=== PATIENT | male | born 1950 | race Caucasian/White ===

== ENCOUNTER 2023-06-16 10:01 | Outpatient (AMB) | payer MEDICARE, SELFPAY ==
[2023-06-16 10:19] VITALS: BP 138/58; PULSE 55; O2SAT 100; BMI 23.5
--- NOTE | 2023-06-16 10:19 | HO.NEPHOV_ITS ---
HPI HPI Comments History of Present Illness Details I had the privilege of seeing Isac in consultation for labile hypertension. He is known to have blood pressure for quite a while and has been on medications but the dose as well as a number of medication had been steadily increasing. He was started on 12.5 mg chlorthalidone recently and his valsartan was increased to 320 mg as well. He has history of bilateral carotid disease and had undergone left carotid endarterectomy early this year. He denies coronary artery disease, congestive heart failure, CVA, peripheral arterial disease. He has not very strict with low-sodium diet. He has been fairly activ e. He denies any chest pain, shortness of breath, paroxysmal nocturnal dyspnea, orthopnea, pedal edema, hematuria, nephrolithiasis, bone or back pain. He does not take excessive nonsteroidal anti-inflammatories. He denies any orthostatic symptoms. He feels well but is concerned about the number of medications he has been taking to keep his blood pressure down. His has accompanied him dur ing this office visit. [facility] Medical History (Updated 06/16/23 @ 10:26 by Leo Chong MD) Hyperlipidemia Hyperkalemia Erectile dysfunction Constipation Carotid artery disease Bilateral carotid bruits Essential (primary) hypertension Aortic heart murmur Surgical History (Updated 06/16/23 @ 10:16 by Rocio Jim MA) H/O colonoscopy History of left-sided carotid endarterectomy Family History (Updated 06/16/23 @ 10:18 by Rocio Jim MA) Father Cardiovascular disease Diabetes mellitus Hypertension Social History (Updated 06/16/23 @ 10:22 by Rocio Jim MA) Alcohol intake: current Patient Tobacco Use Status: Never used Tobacco Vital Signs 06/16/23 10:19 Height 5 ft 10 in Weight 163 lb 8 oz BMI 23.5 BP 138/58 L Blood Pressure Location Lt brachial Position Sitting Pulse 55 Pulse Source Pulse Oximeter Pulse Oximetry (%) 100 Oxygen Delivery Method Room Air Physical Exam Vital Signs: Last Vital Signs Pulse 55 06/16/23 10:19 BP 138/58 L 06/16/23 10:19 Pulse Ox 100 06/16/23 10:19 Oxygen Delivery Method Room Air 06/16/23 10:19 BMI result Body Mass Index 23.5 Const General: comfortable and no acute distress Orientation/consciousness: patient oriented x3 HEENT Head: Yes normocephalic Mouth: Normal oral and palatal mucosa present Eyes EOM: EOMs intact bilaterally Neck Other: Left CEA scar present; right carotid bruit present Neck: Yes supple Resp Auscultation: clear to auscultation bilaterally Cardio Jugular venous distension: no JVD Rate: regular rate GI Palpation (GI): Soft to palpation Auscultation: normal bowel sounds General: Yes no CVA tenderness Back/Spine/Pelvis Back: no CVA tenderness Skin General skin exam: no rashes or lesions noted Neuro General: patient oriented x3 and moves all extremities Extrem General: Yes no pedal edema Assessment & Plan Assessment & Plan (1) Essential (primary) hypertension: Code(s): I10 - Essential (primary) hypertension Plan: Vernon has longstanding hypertension. He is on multiple antihypertensive medications. Has no history of hypokalemia but rather had high normal serum potassium. His valsartan dosage has been increased to 320 mg daily which I asked him to continue. I increased his chlorthalidone to 25 mg in the morning. I ordered Doppler of his renal arteries. He most likely has renovascular disease. He has no history of congestive heart failure or coronary artery disease. He is on statins. He should be on a low-sodium diet. I will do a 24 hour blood pressure monitor on him if his blood pressure control remains labile. I will continue to adjust his medications based on evolving data. I answered all his and his 's questions. Follow-up appointment given. Orders: Orders Creatinine Today I10 - Essential (primary) hypertension Blood Urea Nitrogen Today I10 - Essential (primary) hypertension US renal doppler Today I10 - Essential (primary) hypertension Electrolytes Today I10 - Essential (primary) hypertension US renal BI Today I10 - Essential (primary) hypertension Medications: New chlorthalidone 25 mg PO QAM 90 days 90 tabs 3RF Coding Level of Care Code New Pt Level 4 (77931) Diagnoses Essential (primary) hypertension I10 Results Reviewed Nephrology Results: No Data to Display
== END 2023-06-16 11:06 | disposition home or self-care (01) ==
PROVIDERS: PCP Family Medicine; Referring Provider Family Medicine; Visit Provider Internal Medicine Nephrology
DX: I10 Essential (primary) hypertension (principal)
CPT/HCPCS: 99204

== ENCOUNTER → 2023-06-16 10:01 | Outpatient (BNVA) | payer MEDICARE, SELFPAY | PROVIDERS: PCP Family Medicine; Referring Provider Family Medicine; Visit Provider Internal Medicine Nephrology | DX: I10 Essential (primary) hypertension (principal) | CPT/HCPCS: 99202 ==

== ENCOUNTER 2023-07-14 10:28 | Outpatient (AMB) | payer MEDICARE, SELFPAY ==
--- NOTE | 2023-07-14 10:52 | HO.NEPHOV_ITS ---
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 He is known to have blood pressure for quite a while and has been on medications but the dose as well as a number of medication had been steadily increasing. He was started on 12.5 mg chlorthalidone recently and his valsartan was increased to 320 mg as well. He has history of bilateral carotid disease and had undergone left carotid endarterectomy early this year. He denies coronary artery disease, congestive heart failure, CVA, peripheral arterial disease. He has not very strict with low-sodium diet. He has been fairly active. He denies any chest pain, shortness of breath, paroxysmal nocturnal dyspnea, orthopnea, pedal edema, hematuria, nephrolithiasis, bone or back pain. He does not take excessive nonsteroidal anti-inflammatories. He denies any orthostatic symptoms. He feels well but is concerned about the number of medications he has been taking to keep his blood pressure down. 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 His has accompanied him during this office visit. [facility] Medical History (Updated 06/16/23 @ 10:26 by Leo Chong MD) Hyperlipidemia Hyperkalemia Erectile dysfunction Constipation Carotid artery disease Bilateral carotid bruits Essential (primary) hypertension Aortic heart murmur Surgical History H/O colonoscopy History of left-sided carotid endarterectomy Family History Father Cardiovascular disease Diabetes mellitus Hypertension Social History Alcohol intake: current Patient Tobacco Use Status: Never used Tobacco Physical Exam Vital Signs: Last Vital Signs Pulse 57 07/14/23 10:53 BP 128/60 07/14/23 10:53 Pulse Ox 99 07/14/23 10:53 Oxygen Delivery Method Room Air 07/14/23 10:53 BMI result Body Mass Index 23.8 Const General: comfortable and no acute distress Orientation/consciousness: patient oriented x3 HEENT Head: Yes normocephalic Mouth: Normal oral and palatal mucosa present Eyes EOM: EOMs intact bilaterally Neck Neck: Yes supple Resp Auscultation: clear to auscultation bilaterally Cardio Jugular venous distension: no JVD Rate: regular rate GI Palpation (GI): Soft to palpation Auscultation: normal bowel sounds General: Yes no CVA tenderness Back/Spine/Pelvis Back: no CVA tenderness Skin General skin exam: no rashes or lesions noted Neuro General: patient oriented x3 and moves all extremities Extrem General: Yes no pedal edema Results Reviewed Nephrology Results: No Data to Display Assessment & Plan Assessment & Plan (1) Essential (primary) hypertension: Code(s): I10 - Essential (primary) hypertension Category: Medical Plan Vernon has longstanding hypertension. He is on multiple antihypertensive medications. Has no history of hypokalemia but rather had high normal serum potassium. His blood pressure is currently at goal on current medications. I ordered Doppler of his renal arteries. He most likely has renovascular disease. He has no history of congestive heart failure or coronary artery disease. He is on statins. He should be on a low-sodium diet. I will do a 24 hour blood pressure monitor on him if his blood pressure control remains labile. I will continue to adjust his medications based on evolving data. I answered all his and his 's questions. Follow-up appointment given. Orders: Orders Creatinine Today I10 - Essential (primary) hypertension Blood Urea Nitrogen Today I10 - Essential (primary) hypertension Protein Creatinine Ratio, Ur Today I10 - Essential (primary) hypertension Electrolytes Today I10 - Essential (primary) hypertension Coding Level of Care Code Est Pt Level 4 (18072) Diagnoses Essential (primary) hypertension I10
[2023-07-14 10:53] VITALS: BP 128/60; PULSE 57; O2SAT 99; BMI 23.8
== END 2023-07-14 11:32 | disposition home or self-care (01) ==
PROVIDERS: PCP Family Medicine; Visit Provider Internal Medicine Nephrology
DX: I10 Essential (primary) hypertension (principal)
CPT/HCPCS: 99214

== ENCOUNTER → 2023-07-14 10:28 | Outpatient (BNVA) | payer MEDICARE, SELFPAY | PROVIDERS: PCP Family Medicine; Visit Provider Internal Medicine Nephrology | DX: I10 Essential (primary) hypertension (principal); Z79.899 Other long term (current) drug therapy | CPT/HCPCS: 99212 ==

== ENCOUNTER 2023-07-17 08:11 | Outpatient (REF) | payer MEDICARE, SELFPAY ==
--- NOTE | ~2023-07-17 | US_ITS ---
EXAMINATION: ULTRASOUND RENAL WITH DOPPLER CLINICAL INFORMATION: Essential primary hypertension COMPARISON: None. TECHNIQUE: Real-time grayscale, color Doppler, and duplex Doppler evaluation of the kidneys and renal vasculature was performed. FINDINGS: RENAL MEASUREMENTS: Right: 10.4 x 6.2 x 5.7 cm (Sag x AP x TV) Left: 10.3 x 6.7 x 4.9 cm (Sag x AP x TV) The renal parenchyma appears normal. No hydronephrosis or nephrolithiasis. DOPPLER INTERROGATION: Aorta: 108 cm/sec Right Main Renal Artery: Proximal: 205 cm/sec Mid: 123 cm/sec Distal: 213 cm/sec Left Main Renal Artery: Proximal: 153 cm/sec Mid: 99 cm/sec Distal: 96 cm/sec Renal-Aortic Ratio (RAR): Right: Cannot be accurately calculated due to elevated aortic velocity. Left: Cannot be accurately calculated due to elevated aortic velocity. SEGMENTAL RESISTIVE INDICES: Right: 0.79-0.82 Left: 0.79-0.81 US/US renal doppler IMPRESSION: -No focally elevated velocity within either main renal artery to suggest hemodynamically significant stenosis. -Segmental resistive indices are at the upper limits of normal within both kidneys.
--- NOTE | ~2023-07-17 | US_ITS ---
EXAMINATION: ULTRASOUND RENAL WITH DOPPLER CLINICAL INFORMATION: Essential primary hypertension COMPARISON: None. TECHNIQUE: Real-time grayscale, color Doppler, and duplex Doppler evaluation of the kidneys and renal vasculature was performed. FINDINGS: RENAL MEASUREMENTS: Right: 10.4 x 6.2 x 5.7 cm (Sag x AP x TV) Left: 10.3 x 6.7 x 4.9 cm (Sag x AP x TV) The renal parenchyma appears normal. No hydronephrosis or nephrolithiasis. DOPPLER INTERROGATION: Aorta: 108 cm/sec Right Main Renal Artery: Proximal: 205 cm/sec Mid: 123 cm/sec Distal: 213 cm/sec Left Main Renal Artery: Proximal: 153 cm/sec Mid: 99 cm/sec Distal: 96 cm/sec Renal-Aortic Ratio (RAR): Right: Cannot be accurately calculated due to elevated aortic velocity. Left: Cannot be accurately calculated due to elevated aortic velocity. SEGMENTAL RESISTIVE INDICES: Right: 0.79-0.82 Left: 0.79-0.81 US/US renal BI IMPRESSION: -No focally elevated velocity within either main renal artery to suggest hemodynamically significant stenosis. -Segmental resistive indices are at the upper limits of normal within both kidneys.
== END 2023-07-17 08:12 | disposition home or self-care (01) ==
LOC: HO.US 08:11
PROVIDERS: PCP Family Medicine; Visit Provider Internal Medicine Nephrology
DX: I10 Essential (primary) hypertension (principal)
CPT/HCPCS: 76775; 93975

== ENCOUNTER 2024-01-10 10:43 | Outpatient (AMB) | payer MEDICARE, SELFPAY ==
--- NOTE | 2024-01-10 10:47 | HO.NEPHOV ---
Vital Signs 01/10/24 10:50 Height 5 ft 10 in Weight 167 lb 6 oz BMI 24.0 BP 124/50 L Blood Pressure Location Rt brachial Position Sitting Intake Visit Reasons: Hypertension/ 6 MO FU- [facility] Physician Intensivist Required: No Accompanied by: Spouse Allergies Penicillins Allergy (Verified 01/10/24 10:48) Unknown HPI Comments Details: Isac was seen in follow up for hypertension. He has history of bilateral carotid disease and had undergone left carotid endarterectomy . He denies coronary artery disease, congestive heart failure, CVA, peripheral arterial disease. He has not very strict with low-sodium diet. He has been fairly active. He denies any chest pain, shortness of breath, paroxysmal nocturnal dyspnea, orthopnea, pedal edema, hematuria, nephrolithiasis, bone or back pain. He does not take excessive nonsteroidal anti-inflammatories. 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 His has accompanied him during this office visit. [facility] Medical History (Updated 06/16/23 @ 10:26 by Leo Chong MD) Hyperlipidemia Hyperkalemia Erectile dysfunction Constipation Carotid artery disease Bilateral carotid bruits Essential (primary) hypertension Aortic heart murmur Surgical History H/O colonoscopy History of left-sided carotid endarterectomy Family History Father Cardiovascular disease Diabetes mellitus Hypertension Social History Alcohol intake: current Patient Tobacco Use Status: Never used Tobacco Review of Systems Const All systems reviewed & are unremarkable except as noted in HPI and below Physical Exam Vital Signs: Last Vital Signs BP 124/50 L 01/10/24 10:50 BMI result Body Mass Index 24.0 Const General: comfortable and no acute distress Orientation/consciousness: patient oriented x3 HEENT Head: Yes normocephalic Mouth: Normal oral and palatal mucosa present Eyes EOM: EOMs intact bilaterally Neck Neck: Yes supple Resp Auscultation: clear to auscultation bilaterally Cardio Jugular venous distension: no JVD Rate: regular rate GI Palpation (GI): Soft to palpation Auscultation: normal bowel sounds General: Yes no CVA tenderness Back/Spine/Pelvis Back: no CVA tenderness Skin General skin exam: no rashes or lesions noted Neuro General: patient oriented x3 and moves all extremities Extrem General: Yes no pedal edema Results Reviewed Nephrology Results: Renal US 07/17/23 Assessment & Plan Assessment & Plan (1) Essential (primary) hypertension: Code(s): I10 - Essential (primary) hypertension Category: Medical Plan Vernon has longstanding hypertension. He is on multiple antihypertensive medications. His blood pressure is currently at goal on current medications. He most likely has renovascular disease. He has no history of congestive heart failure or coronary artery disease. He is on statins. He should be on a low-sodium diet. He recently had hyperkalemia which has been treated. Repeat K was ok. I answered all his and his 's questions. Follow-up appointment given Orders: Orders Creatinine 3 Months I10 - Essential (primary) hypertension Blood Urea Nitrogen 3 Months I10 - Essential (primary) hypertension Electrolytes 3 Months I10 - Essential (primary) hypertension Coding Level of Care Code Est Pt Level 4 (38542) Diagnoses Essential (primary) hypertension I10
[2024-01-10 10:50] VITALS: BP 124/50; BMI 24.0
== END 2024-01-10 11:18 | disposition home or self-care (01) ==
LOC: HO.HKA 10:44
PROVIDERS: PCP Family Medicine; Visit Provider Internal Medicine Nephrology
DX: I10 Essential (primary) hypertension (principal)
CPT/HCPCS: 99214

== ENCOUNTER → 2024-01-10 10:43 | Outpatient (BNVA) | payer MEDICARE, SELFPAY | PROVIDERS: PCP Family Medicine; Visit Provider Internal Medicine Nephrology | DX: I10 Essential (primary) hypertension (principal) | CPT/HCPCS: 99212 ==

== ENCOUNTER 2024-08-21 15:05 | Outpatient (AMB) | payer MEDICARE, SELFPAY ==
--- NOTE | 2024-08-21 15:50 | HO.NEPHOV ---
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 He has history of bilateral carotid disease and had undergone left carotid endarterectomy . He denies coronary artery disease, congestive heart failure, CVA, peripheral arterial disease. He has not very strict with low-sodium diet. He has been fairly active. He denies any chest pain, shortness of breath, paroxysmal nocturnal dyspnea, orthopnea, pedal edema, hematuria, nephrolithiasis, bone or back pain. He does not take excessive nonsteroidal anti-inflammatories. He denies any orthostatic symptoms. [facility] Medical History (Updated 06/16/23 @ 10:26 by Leo Chong MD) Hyperlipidemia Hyperkalemia Erectile dysfunction Constipation Carotid artery disease Bilateral carotid bruits Essential (primary) hypertension Aortic heart murmur Surgical History (Updated 08/21/24 @ 15:56 by Rocio Jim MA) History of right-sided carotid endarterectomy H/O colonoscopy History of left-sided carotid endarterectomy Family History Father Cardiovascular disease Diabetes mellitus Hypertension Social History Alcohol intake: current Patient Tobacco Use Status: Never used Tobacco Review of Systems Const All systems reviewed & are unremarkable except as noted in HPI and below Physical Exam Vital Signs: Last Vital Signs Pulse 57 08/21/24 15:54 BP 152/70 H 08/21/24 15:54 Pulse Ox 99 08/21/24 15:54 Oxygen Delivery Method Room Air 08/21/24 15:54 BMI result Body Mass Index 24.0 Const General: comfortable and no acute distress Orientation/consciousness: patient oriented x3 HEENT Head: Yes normocephalic Mouth: Normal oral and palatal mucosa present Eyes EOM: EOMs intact bilaterally Neck Neck: Yes supple Resp Auscultation: clear to auscultation bilaterally Cardio Jugular venous distension: no JVD Rate: regular rate GI Palpation (GI): Soft to palpation Auscultation: normal bowel sounds General: Yes no CVA tenderness Back/Spine/Pelvis Back: no CVA tenderness Skin General skin exam: no rashes or lesions noted Neuro General: patient oriented x3 and moves all extremities Extrem General: Yes no pedal edema Results Reviewed Nephrology Results: Renal US 07/17/23 Assessment & Plan Assessment & Plan (1) Essential (primary) hypertension: Code(s): I10 - Essential (primary) hypertension Category: Medical Plan Vernon has longstanding hypertension. He is on multiple antihypertensive medications. His blood pressure is currently at goal on current medications. He most likely has renovascular disease. He has no history of congestive heart failure or coronary artery disease. He is on statins. He should be on a low-sodium diet. Follow-up appointment given Orders: Orders Creatinine 6 Months I10 - Essential (primary) hypertension Blood Urea Nitrogen 6 Months I10 - Essential (primary) hypertension Electrolytes 6 Months I10 - Essential (primary) hypertension Coding Level of Care Code Est Pt Level 4 (42919) Diagnoses Essential (primary) hypertension I10
[2024-08-21 15:54] VITALS: BP 120/70; PULSE 57; O2SAT 99; BMI 24.0
--- OUTSIDE RECORDS SUMMARY | 2024-08-21 17:23 | XMS_ITS | Encounter Summary ---
Author Organization [facility] Address [address] [facility] [facility] [address] [place] [address] Phone Care Team Providers Care Technical Sme Name Role Phone Chaim Valencia DO Primary Care Provider [phone] Reason for Visit * Reason Comments Med Change Request Encounter Details Date Type Department Care Team ([facility] st Contact Info) Description 06/27/2023 Refill [facility] [address] [facility] [address] [place] [phone] Jason Peraza MD [address] [facility] [address] [place] [phone] Social History Tobacco Use Types Packs/Day Years Used Date Smoking Tobacco: Never Smokeless Tobacco: Never Alcohol Use Standard Drinks/Week Comments Yes 0 (1 standard drink = 0.6 oz pure alcohol) Alcoholic Drinks/day: Occasional social drink Sex and Gender Information Value Date Recorded Sex Assigned at Not on file Legal Sex Male 4:55 PM EST Gender Identity Not on file Sexual Orientation Not on file documented as of this encounter Plan of Treatment Not on file documented as of this encounter Visit Diagnoses Not on filedocumented in this encounter Care Teams Technical Sme Relationship Specialty Start Date End Date Chaim Valencia DO [address] [place] [address] PCP - General 03/16/20 documented as of this encounter
== END 2024-08-21 16:09 | disposition home or self-care (01) ==
LOC: HO.HKA 15:06
PROVIDERS: PCP Family Medicine; Visit Provider Internal Medicine Nephrology
DX: I10 Essential (primary) hypertension (principal)
CPT/HCPCS: 99214

== ENCOUNTER → 2024-08-21 15:05 | Outpatient (BNVA) | payer MEDICARE, SELFPAY | PROVIDERS: PCP Family Medicine; Visit Provider Internal Medicine Nephrology | DX: I10 Essential (primary) hypertension (principal) | CPT/HCPCS: 99212 ==